=== PATIENT | female | born 1990 | race Caucasian/White ===

== ENCOUNTER 2017-08-24 12:30 | Observation (INO) | payer MEDICAID, OTHER ==
[~2017-08-24] VITALS: Ht 154.9 cm; Wt 61.2 kg
[2017-08-24] MEDS ORDERED: LACTATED RINGER'S 1,000 ML IV ONE (13:30)
[2017-08-24 13:48] LABS: Urine Bacteria NONE SEEN /hpf (None Seen); Urine Blood Negative /uL (Negative); Urine Specific Gravity 1.015 (1.001-1.035); Urine WBC 5 /hpf (0 - 5)
[2017-08-24] MEDS ORDERED: TERBUTALINE SULFATE 1 MG/ML 1ML VIAL SC ONE (14:02)
[2017-08-24] MEDS ORDERED: LACTATED RINGER'S 1,000 ML IV SCH (14:05)
[2017-08-24] MEDS: TERBUTALINE SULFATE 1 MG/ML 1ML VIAL SC SCH ×3 (14:11→15:46)
[2017-08-24 14:14] LABS: Alcohol, Urine < 3.0 mg/dL (0-5); Amphetamine Screen, Urine POSITIVE (NEGATIVE); Barbiturate Scree,Urine NEGATIVE (NEGATIVE); Benzodiazephine Screen, Urine NEGATIVE (NEGATIVE); Cannabinoid Screen, Urine NEGATIVE (NEGATIVE); Cocaine Screen, Urine NEGATIVE (NEGATIVE); Opiate Scree,Urine NEGATIVE (NEGATIVE); Phencyclidine Screen, Urine NEGATIVE (NEGATIVE)
[2017-08-24 15:47] LABS: Basophils # (auto) 0 uL; Basophils % (auto) 0.1 % (0.0-2.0); Eosinophils # (auto) 0 uL; Lymphocytes # (auto) 1.1 uL; Monocytes # (auto) 0.7 uL; Neutrophils # (auto) 8.2 uL; Red Blood Cells 3.69 10^6/uL (4.0-5.20)
[2017-08-24 15:48] LABS: Eosinophils % (auto) 0.3 % (0.0-7.0); Hematocrit 27.5 % (36.0-46.0); Lymphocytes % (auto) 11.4 % (10.0-50.0); Mean Corpuscular Hemoglobin 24.4 pg (28.0-32.0); Mean Corpuscular Hgb Conc. 32.8 g/dL (32.0-36.0); Mean Corpuscular Volume 74.4 fL (80.0-100.0); Neutrophils % (auto) 81.2 % (37.0-80.0); Nucleated Red Blood Cells % 0.1 %; Platelet Count (auto) 224 10^3/uL (140-450); Red Cell Distribution Width 17.1 % (11.8-14.3)
[2017-08-24 16:00] LABS: INR 0.98 (0.9-1.15); Partial Thromboplastin Time 28.5 sec (22.64-33.71); Prothrombin Time 10.7 sec (9.37-12.3)
[2017-08-24 16:12] LABS: Albumin 2.3 g/dL (3.4-5.0); BUN/Creatinine Ratio 8.5; Bilirubin, Total 0.5 mg/dL (0.2-1.0); Calcium 8.2 mg/dL (8.5-10.1); Potassium 3.7 mmol/L (3.5-5.1); Total Protein 5.9 g/dL (6.4-8.2); Uric Acid 4.8 mg/dL (2.6-6.0)
[2017-08-24] MEDS ORDERED: NIFEdipine 10 MG CAP PO SCH (17:00)
[2017-08-24] MEDS ORDERED: D5W/LACTATED RINGERS 1,000 ML IV SCH (20:15)
[2017-08-26 03:06] LABS: RPR Non Reactive (Non Reactive)
[2017-08-26 10:07] LABS: Rubella Antibodies, IgG 2.44 index (Immune >0.99)
== END 2017-08-24 20:32 | disposition still patient (30) | DRG 566 ==
LOC: EDUNIT# 12:30 → LDRP 12:30
PROVIDERS: ADMIT Specialist; ATTEND Specialist
DX: O62.9 Abnormality of forces of labor, unspecified (principal); O26.893 Other specified pregnancy related conditions, third trimester; R10.9 Unspecified abdominal pain; Z3A.39 39 weeks gestation of pregnancy
CPT/HCPCS: 36415; 59025; 76805; 80053; 80307; 81001; 81002; 84550; 85025; 85610; 85730; 86592; 86703; 86762; 86850; 86900; 86901; 87340; 94760; 96360; 96361; 96372; G0378; J3105; 96365; 96366